=== PATIENT | female | born 1985 | race Caucasian/White ===

== ENCOUNTER 2016-08-04 18:40 | Inpatient (IN) | payer BC ==
[~2016-08-04] VITALS: Ht 167.6 cm; Wt 129.4 kg
--- NOTE | ~2016-08-04 | HP ---
PATIENT'S NAME: SAWYER VAZQUEZ [facility] AGE: 31 Y [address] ROOM: G6214 [place], [place] [address] LOCATION: [facility] ADMIT DATE: 08/04/2016 History & Physical DISCHARGE DATE: FAMILY PHYSICIAN: PHYSICIAN, NO ATTENDING PHYSICIAN: Conner JUNIOR DATE OF SERVICE: CHIEF COMPLAINT: Altered mental status. HISTORY OF PRESENT ILLNESS: This is an extremely complicated patient. Her history is obtained from her as well as charts accompanying her from the outside facility as well as Dr. Taylor in [place] who has been treating the patient for the last several weeks. This is a 31-year-old female, who recently moved to [facility] from [place]. We do have some accompanying records from [place] as well, but this is just an ER record of her visit approximately a month ago. Her past medical history includes borderline personality disorder, questionable bipolar disorder, depression and anxiety, diarrhea predominant IBS, severe migraines for which the patient apparently was receiving Botox injections with success in [place], asthma, sinusitis, insulin-dependent diabetes as well as other not fully known conditions. Upon arriving to [place] from [place], the patient has been treated by Dr. Taylor for complaints of recurrent migraines as well as congestion as well as shortness of breath and generalized fatigue. While being treated by Dr. Taylor in [place], she has also been visiting the ER in [place] as well as the ERs in [place] with complaints of congestion and recurrent migraines. She has been receiving opioids as well as NSAIDs as well as antiemetics and Compazine for her migraines. She has been receiving intermittent doses of steroids for her presumed sinusitis/asthma flares. She had multiple other complaints that were being treated as well. The patient has been visiting both ERs frequently and a concern for opioid-seeking behavior has been raised. It is being conveyed to me by her physician up in [place] that initially when he saw the patient, she was on Seroquel and lithium, but has then discontinued these agents supposedly due to tardive dyskinesia. He reports that when she was reporting tardive dyskinesia/shaking, she would start shaking an extremity that he would look at during his exam. The patient's also reports that the patient has recently been PATIENT'S NAME: SAWYER VAZQUEZ [facility] AGE: 31 Y [address] ROOM: G6214 [place] [address] LOCATION: [facility] ADMIT DATE: 08/04/2016 History & Physical DISCHARGE DATE: FAMILY PHYSICIAN: PHYSICIAN, NO ATTENDING PHYSICIAN: Conner JUNIOR diagnosed with insulin-dependent diabetes and has been on a sliding scale. Her sugars have been extremely erratic and she does occasionally use sliding scale, but at other times, she does not. Of note, her hemoglobin A1c was 5.6 when she presented to [place] today. The patient presented to the [place] ER with complaints of hyperglycemia, Accu- Chek's in 300s as well as dizziness and shaking. She was also found to have a potassium of 2.3 as well as an Accu-Chek of 31. She was admitted for observation. She did receive Phenergan 50 mg IM as well as another cocktail to treat her migraines. Subsequently, the patient became progressively altered and unresponsive. She did receive several rounds of Narcan with minimal effect. Eventually, the patient was completely obtunded and unresponsive and was intubated for airway protection. She was subsequently flown to the [facility]. Her is here and I had an extensive conversation with him about her past medical history, and he also mentioned the patient was intubated with heart failure approximately a year ago back in [place]. He categorically denies any drug or alcohol use, but does endorse approximately a pack a day of tobacco use. 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 Initially upon my visit, the patient was entirely unresponsive to voice or pain stimuli and actually would not overbreathe the vent set at very low respiratory rates. Several minutes after the left the room, the patient woke up and became combative trying to pull out her ET tube. She has now been sedated and is resting comfortably. The patient also received a stress dose of steroids at the outside facility due to frequent steroid use. REVIEW OF SYSTEMS: Cannot be obtained as the patient is intubated and sedated. PAST MEDICAL HISTORY: As described in the HPI. PAST SURGICAL HISTORY: None apparent. SOCIAL HISTORY: As described in the HPI. CURRENT MEDICATIONS: As per the transferring paperwork though accuracy is not confirmed. PATIENT'S NAME: SAWYER VAZQUEZ [facility] AGE: 31 Y [address] ROOM: G6214 [place], [place] [address] LOCATION: [facility] ADMIT DATE: 08/04/2016 History & Physical DISCHARGE DATE: FAMILY PHYSICIAN: PHYSICIAN, NO ATTENDING PHYSICIAN: Conner JUNIOR 1. Levaquin 500 mg daily. Currently being treated for recurrent sinusitis. 2. Gabapentin 300 t.i.d. 3. Wellbutrin 150 daily. 4. Diclofenac 75 mg twice a day. 5. DuoNeb 4 times a day. 6. [place] 300 a.m., 600 p.m. 7. Maxalt 10 mg as needed. 8. Flonase 50. 9. Albuterol 90. 10. Robaxin 750 t.i.d. FAMILY HISTORY: Reviewed and does not appear to be contributory by her . PHYSICAL EXAMINATION: VITAL SIGNS: Temperature 97.9, pulse is 93, respirations are 18, blood pressure 153/79, saturating 100% on 4 L FiO2. GENERAL: Appears morbidly obese, middle-aged female, initially entirely obtunded, but now attempting to take out her tube. NEUROLOGIC: Appears that the patient is moving all extremities. LUNGS: Clear to auscultation. HEART: Shows regular rate and rhythm without appreciable murmurs, gallops, or rubs. GI: Abdomen is soft, nontender, and nondistended. Slightly diminished bowel sounds. : Reveals no costovertebral angle tenderness. VASCULAR: Reveals 2+ pedal pulses. MUSCULOSKELETAL: Shows no muscle or joint abnormalities. SKIN: Warm and dry. PSYCHIATRIC: Cannot be conducted due to the patient being intubated. LABORATORY DATA: Studies from the outside facility are: Hemoglobin A1c is 5.7. Urine is negative. White count is 28.8, hemoglobin 12.3, platelets are 405. Sodium 145, potassium 2.3, glucose 31, chloride 106, carbon dioxide 28, BUN 17, creatinine 0.89. Remainder is unremarkable. Cardiac enzymes are negative. EKG appears unremarkable. ASSESSMENT AND PLAN: This is a critically ill 31-year-old female, who will be admitted with: 1. Altered mental status. It is difficult to fully understand the underlying etiology for her presentation. Per my discussion with her current PMD as well as some records being transferred here, it is certainly possible that the patient may have shown some opioid-seeking behavior. Her altered mental status may also be related to profound PATIENT'S NAME: SAWYER VAZQUEZ [facility] AGE: 31 Y [address] ROOM: G6214 [place], [place] [address] LOCATION: [facility] ADMIT DATE: 08/04/2016 History & Physical DISCHARGE DATE: FAMILY PHYSICIAN: PHYSICIAN, NO ATTENDING PHYSICIAN: Conner JUNIOR hypoglycemia. A CAT scan of her head and sinuses has been done at the outside facility, but at this point, I do not have access to the actual images nor to the report and we will request those to be sent over. We will maintain the patient on the ventilator through the night for airway protection and provide her p.r.n. sedation as needed. We will reevaluate her in the morning once we have better control of her metabolic status, including potassium and glucose. I will also check her lithium level. She did have positive benzos and opiates on the urine tox done at the outside facility, but she has received opioids in one of the 2 ERs which she visits frequently though the origin for the benzos is unclear as of now. 2. Hypoglycemia. The patient did receive stress dose steroids at the outside facility. We will closely monitor her Accu-Chek's and provide her with D50 as needed. It does not appear that the patient is actually diabetic based on her hemoglobin A1c and we will decide on her glucose control regimen once we get a better baseline for her Accu-Chek's. 3. Recurrent steroid therapy. This has been communicated to me and appears to be an ongoing pattern from [place]. It seems like at this point steroids are not warranted and we will hold off. Her biochemical profile is inconsistent with adrenal insufficiency as her potassium is low and sodium is normal and the opposite would be expected. 4. Leukocytosis. I have reviewed the patient's lab results from several visits here as well as the available paperwork from [place], and she does develop significant leukocytosis likely related to the steroids. We will draw blood cultures as well as urine cultures and monitor her CBCs. 5. Hypokalemia, unclear what the underlying etiology is. We will recheck all her labs and initiate a renal workup. We will supplement her potassium. 6. Airway protection. The patient will be intubated as above. 7. Questionable sinusitis. We will have to review her images. 8. Additional management will depend on clinical course. This line of management was discussed with the patient's and I did explain to him that we are dealing with an extremely difficult picture and we will do our best to get the patient better. This patient is critically ill. Critical care time outside of procedures is 75 minutes. MD SUNDEEP MENA/matthew PATIENT'S NAME: SAWYER VAZQUEZ [facility] AGE: 31 Y [address] ROOM: [place] [address] LOCATION: [facility] ADMIT DATE: 08/04/2016 History & Physical DISCHARGE DATE: FAMILY PHYSICIAN: PHYSICIAN, ARPIT ATTENDING PHYSICIAN: Conner JUNIOR /[id number] D: [id number] T: HISTORY & PHYSICAL
--- NOTE | ~2016-08-04 | DS ---
PATIENT'S NAME: SAWYER VAZQUEZ [facility] AGE: 31 Y [address] ROOM: [place] [address] LOCATION: [facility] ADMIT DATE: 08/04/2016 Discharge Summary DISCHARGE DATE: 08/06/2016 FAMILY PHYSICIAN: PHYSICIAN, NO ATTENDING PHYSICIAN: Conner JUNIOR PRIMARY DIAGNOSES: 1. Acute encephalopathy. 2. Severe hypoglycemia. 3. Acute hypoxic respiratory failure. 4. Asthma, moderate persistent. 5. Bipolar disorder. 6. Polypharmacy. 7. Morbid obesity. 8. Tobaccoism. 9. Migraine headaches. 10. Polycystic ovarian syndrome. 11. Generalized pain. OPERATIONS OR PROCEDURES: None. HISTORY OF PRESENTING ILLNESS/REASON FOR ADMISSION: Please read H and P dictated 08/04/2016. HOSPITAL COURSE: The patient was admitted to hospital as noted above after transfer from outside facility with acute encephalopathy. Her presentation was disorganized. She had initially presented to the outside facility with complaints of hyperglycemia. She does not actually recall the events preceding this and does not believe that she utilized insulin, but admits that it could be possible. The records that accompanied her do not delineate whether or not she received insulin at the time of her presentation there. At any rate, she developed progressive obtundation and anatoly hypoglycemia after her arrival. She did require ventilatory support, and was transferred here for definitive evaluation and management. On her arrival, she was persistently hypoglycemic. She did receive some IV dextrose supplementation and her blood sugars normalized. She quickly became arousable and was able to be extubated. Subsequently, she was transferred to the floor. Her medication regimen was streamlined. As indicated above, there is a significant amount of disorganization and fragmented care in the preceding months. The patient had been placed on a number of medications in the preceding year that she was no longer taking, but continues to have in her possession. Unfortunately, she was not able to provide consistent report as to which medication she did PATIENT'S NAME: SAWYER VAZQUEZ [facility] AGE: 31 Y [address] ROOM: [place] [address] LOCATION: GPCU ADMIT DATE: 08/04/2016 Discharge Summary DISCHARGE DATE: 08/06/2016 FAMILY PHYSICIAN: PHYSICIAN, NO ATTENDING PHYSICIAN: SANDI,Dagmawe continue to use. On hospital day #3, she was complaining of generalized pain and was treated with non-opiate medications. She was ambulated and was tolerating regular diet, and at that point, it was felt she would be stable enough for discharge to home with plans for close clinical followup with primary care provider. She was encouraged to establish primary care provider in her hometown of [place], which she had been encouraged to do at her last two of the emergency room visits. DISCHARGE INSTRUCTIONS: Diet: Regular as tolerated. Activity: As tolerated. MEDICATIONS: 1. Albuterol HFA 2 puffs p.o. q.4-6 hours p.r.n. wheezing or dyspnea. 2. Tessalon Perles 100 mg p.o. t.i.d. 3. Diclofenac sodium 75 mg p.o. b.i.d. 4. Clonazepam 1 mg p.o. b.i.d. 5. Bentyl 10 mg p.o. q.i.d. 6. Migranal spray each nostril daily p.r.n. 7. Nexium 40 mg p.o. daily. 8. Advair 500/50 one puff p.o. b.i.d. 9. Gabapentin 600 mg p.o. t.i.d. 10. Lisinopril 10 mg p.o. q.p.m. 11. Robaxin 750 mg p.o. t.i.d. p.r.n. 12. Singulair 10 mg p.o. at bedtime. 13. Jose De Jesus 21 one tab daily. 14. Zofran 4 mg p.o. b.i.d. p.r.n. nausea. 15. Verapamil 80 mg p.o. t.i.d. FOLLOWUP: She will follow up with her primary care provider in [place] (primary care provider at the clinic there) in 5-7 days. She was instructed not to use insulin, but to continue to record her blood sugar log twice daily. CONDITION ON DISCHARGE: Fair. Total time spent on discharge process 45 minutes. MD REYNA GALAN/matthew PATIENT'S NAME: SAWYER VAZQUEZ [facility] AGE: 31 Y [address] ROOM: [address] [address] [facility] AD[facility] DATE: 08/04/2016 Discharge Summary DISCHARGE DATE: 08/06/2016 FAMILY PHYSICIAN: ARPIT ADAMS ATTENDING PHYSICIAN: Conner JUNIOR /[id number] d: 08/07/16 0139 t: 08/16/16 0000, DISCHARGE SUMMARY
[2016-08-05 00:14] LABS: HEMATOCRIT 39.6 % (33.0-46.0); HEMOGLOBIN 12.4 g/dL (11.0-15.0); MCH 29.2 pg (27.0-34.0); MCHC 31.3 gm/dL (32.0-36.5); MCV 93.2 fl (83.0-98.0); MPV 9.6 fl (9.4-12.4); NEUTROPHIL % 89.4 %; NRBC % 0 /100WBC (0-0.00); PLATELET COUNT 302 K/uL (150-450); RBC 4.25 M/uL (3.50-5.50); RDW-CV 16.1 % (11.9-14.6); WBC 24.6 K/uL (4.0-11.0)
[2016-08-05 00:15] LABS: BASOPHIL % 0.2 %; IMMATURE GRANULOCYTE # 0.3 K/uL (0.0-0.3); IMMATURE GRANULOCYTE % 1.2 %; LYMPHOCYTE # 1.5 K/uL (0.8-4.0); LYMPHOCYTE % 6.2 %; MONOCYTE # 0.8 K/uL (0.0-1.0)
[2016-08-05 00:30] LABS: ALK PHOS 51 IU/L (33-138); ALT 27 IU/L (12-78); ANION GAP 11.3 (10.0-19.0); AST 17 IU/L (10-40); BLOOD UREA NITROGEN 12 mg/dL (6-24); CHLORIDE 109 mMol/L (96-110); CO2 27 mMol/L (22-32); CPK 71 IU/L (21-215); CREATININE 0.6 mg/dL (0.5-1.1); ESTIMATED GFR (MDRD EQUATION) > 60; PHOSPHORUS 4.7 mg/dL (2.5-4.9); POTASSIUM 4.3 mMol/L (3.7-5.1); SODIUM 143 mMol/L (135-145); TOTAL BILIRUBIN 0.2 mg/dL (0.0-1.5); TOTAL PROTEIN 5.9 g/dL (6.0-8.4)
[2016-08-05 00:32] LABS: CALCIUM 7.4 mg/dL (8.5-10.5)
[2016-08-05 03:23] LABS: BILIRUBIN URINE NEGATIVE (NEGATIVE); BLOOD URINE 25 /UL (NEGATIVE); COLOR URINE YELLOW (YELLOW); GLUCOSE URINE NEGATIVE (NEGATIVE); KETONE URINE NEGATIVE (NEGATIVE); LEUKOCYTES URINE NEGATIVE /UL (NEGATIVE); NITRITE URINE NEGATIVE (NEGATIVE); PH URINE 6.5 (4.0-8.0); PROTEIN URINE NEGATIVE (NEGATIVE); SPEC GRAVITY URINE 1.015 (1.003-1.035); TURBIDITY URINE CLEAR (CLEAR); UROBILINOGEN URINE NORMAL (NORMAL)
[2016-08-05] MEDS ORDERED: DUONEB INH (03:28)
[2016-08-05] MEDS ORDERED: WELLBUTRIN XL150 MG PO (03:29)
[2016-08-05] MEDS ORDERED: NEURONTIN300 MG PO (03:29)
[2016-08-05] MEDS ORDERED: NEURONTIN600 MG PO (03:30)
[2016-08-05 03:32] LABS: BACTERIA URINE NEGATIVE (NEGATIVE); EPITHELIAL URINE 0-2 #/HPF (NEGATIVE); WBC URINE NEGATIVE #/HPF (NEGATIVE)
[2016-08-05] MEDS ORDERED: COMBIVENT RESPIM4 GM INH (03:32)
[2016-08-05] MEDS ORDERED: MAXALT10 MG PO ×2 (03:34→03:35)
[2016-08-05] MEDS ORDERED: ADVAIR 500-501 EACH INH (03:36)
[2016-08-05] MEDS ORDERED: PROAIR HFA8.5 GM INH (03:39)
[2016-08-05] MEDS ORDERED: PHENERGAN25 M1 PO (03:40)
[2016-08-05] MEDS ORDERED: ROBAXIN500 MG PO (03:40)
[2016-08-05 03:43] LABS: BARBITURATE NEGATIVE (NEGATIVE); OPIATES POSITIVE (NEGATIVE)
[2016-08-05 03:45] LABS: AMPHETAMINE NEGATIVE (NEGATIVE); COCAINE NEGATIVE (NEGATIVE)
[2016-08-05 10:44] LABS: BASOPHIL % 0.2 %; EOSINOPHIL # 0.1 K/uL (0.0-0.5); EOSINOPHIL % 0.6 %; HEMATOCRIT 36.4 % (33.0-46.0); HEMOGLOBIN 11.3 g/dL (11.0-15.0); IMMATURE GRANULOCYTE # 0.2 K/uL (0.0-0.3); IMMATURE GRANULOCYTE % 0.8 %; LYMPHOCYTE # 3.5 K/uL (0.8-4.0); LYMPHOCYTE % 16.3 %; MCH 28.3 pg (27.0-34.0); MCV 91.2 fl (83.0-98.0); MONOCYTE # 0.9 K/uL (0.0-1.0); MONOCYTE % 4.3 %; MPV 10.7 fl (9.4-12.4); NEUTROPHIL # (ANC) 16.5 K/uL (1.8-7.8); NEUTROPHIL % 77.8 %; NRBC % 0.1 /100WBC (0-0.00); RBC 3.99 M/uL (3.50-5.50); RDW-CV 16.5 % (11.9-14.6)
[2016-08-05 11:35] LABS: ALBUMIN 2.7 gm/dL (3.5-5.0); ANION GAP 10.5 (10.0-19.0); BLOOD UREA NITROGEN 9 mg/dL (6-24); CALCIUM 8.1 mg/dL (8.5-10.5); CHLORIDE 109 mMol/L (96-110); CO2 28 mMol/L (22-32); CREATININE 0.6 mg/dL (0.5-1.1); ESTIMATED GFR (MDRD EQUATION) > 60; PHOSPHORUS 3.1 mg/dL (2.5-4.9); SODIUM 143 mMol/L (135-145)
[2016-08-05 11:45] LABS: WBC 21.3 K/uL (4.0-11.0)
[2016-08-05 11:48] LABS: PLATELET COUNT 177 K/uL (150-450)
[2016-08-05 11:49] LABS: POTASSIUM 4.5 mMol/L (3.7-5.1)
[2016-08-05] MEDS ORDERED: ZOFRAN4 MG PO (14:37)
[2016-08-05] MEDS ORDERED: CALAN SR GENER120 MG PO (14:38)
[2016-08-05] MEDS ORDERED: ZONISAMIDE100 MG PO (14:39)
[2016-08-05] MEDS ORDERED: PRINIVIL OR ZES10 MG PO (14:39)
[2016-08-05] MEDS ORDERED: PROMETH-CODEIN 65 ML PO (14:43)
[2016-08-05] MEDS ORDERED: SINGULAIR10 MG PO (14:43)
[2016-08-05] MEDS ORDERED: TESSALON PERLE100 MG PO (14:44)
[2016-08-05] MEDS ORDERED: BENTYL10 MG PO (14:44)
[2016-08-05] MEDS ORDERED: DICLOFENAC SODI75 MG PO (14:45)
[2016-08-05] MEDS ORDERED: LIDOCAINE1 EACH TRANS (14:46)
[2016-08-05] MEDS ORDERED: LARIN 21 1-201 EACH PO (14:51)
[2016-08-05] MEDS ORDERED: NEXIUM40 MG PO (14:51)
[2016-08-05] MEDS ORDERED: ZANAFLEX4 MG PO (14:51)
[2016-08-05] MEDS ORDERED: MIGRANAL1 ML NOSE (14:52)
[2016-08-05] MEDS ORDERED: KLONOPIN1 MG PO (14:53)
[2016-08-06] MEDS ORDERED: CHANTIX0.5 MG PO ×2 (13:27→13:28)
[2016-08-06] MEDS ORDERED: CHANTIX1 MG PO (13:29)
== END 2016-08-06 14:12 | disposition disaster alternative care site (69) | DRG 637 ==
LOC: GPCU 20:53 → GICU 20:53 → GPCU 08-05 14:18
PROVIDERS: Family Medicine; Internal Medicine; ADMIT Internal Medicine
DX: E11.649 Type 2 diabetes mellitus with hypoglycemia without coma (principal); G93.41 Metabolic encephalopathy; J96.01 Acute respiratory failure with hypoxia; Z68.42 Body mass index [BMI] 45.0-49.9, adult; R65.10 Systemic inflammatory response syndrome (SIRS) of non-infectious origin without acute organ dysfunction; E66.01 Morbid (severe) obesity due to excess calories; D72.829 Elevated white blood cell count, unspecified; E87.6 Hypokalemia; F31.9 Bipolar disorder, unspecified; J32.9 Chronic sinusitis, unspecified; J45.40 Moderate persistent asthma, uncomplicated
CPT/HCPCS: C1751; C9113; J1650; J2250; J7030; J7042; J7050; J7060

== ENCOUNTER → 2016-08-04 | Outpatient (CLI) | payer BC ==
[~2016-08-04] MED LIST: ACCU-CHEK1 EAC1; ADVAIR 500-501 EACH INH; BENTYL10 MG PO; BOTOX; CALAN SR GENER120 MG PO; CHANTIX0.5 MG PO; CHANTIX1 MG PO; COMBIVENT RESPIM4 GM INH; DELTASONE10 MG PO; DESYREL50 MG PO; DICLOFENAC SODI75 MG PO; DUONEB INH; FIORICET 50-301 EACH PO; HUMALOG100 UNIT/1 SUB-Q; HYDROCODON-ACE1 EAC6 PO; IMITREX6 MG/0.5 M SUB-Q; K-TAB 10MEQ10 MEQ PO; KLONOPIN1 MG PO; LARIN 21 1-201 EACH PO; LASIX20 MG PO; LEVAQUIN 750 M750 MG PO; LIDOCAINE1 EACH TRANS; LITHIUM CARBON300 MG PO; LYRICA 150MG C150 MG PO; MAXALT10 MG PO; MIGRANAL1 ML NOSE; NEURONTIN300 MG PO; NEURONTIN600 MG PO; NEXIUM40 MG PO; PHENERGAN25 M1 PO; PRINIVIL OR ZES10 MG PO; PROAIR HFA8.5 GM INH; PROMETH-CODEIN 65 ML PO; ROBAXIN500 MG PO; SEROQUEL200 MG PO; SINGULAIR10 MG PO; TESSALON PERLE100 MG PO; ULTRAM50 MG PO; WELLBUTRIN SR150 MG PO; WELLBUTRIN XL150 MG PO; XARELTO15 MG PO; XARELTO20 MG PO; ZANAFLEX4 MG PO; ZOFRAN4 MG PO; ZONISAMIDE100 MG PO
== END | disposition disaster alternative care site (69) ==
LOC: GAMB 20:04
DX: T65.91XA Toxic effect of unspecified substance, accidental (unintentional), initial encounter (principal); R40.20 Unspecified coma
CPT/HCPCS: A0425; A0428

== ENCOUNTER 2016-08-11 01:38 | Inpatient (IN) | payer BC ==
[~2016-08-11] VITALS: Ht 167.6 cm; Wt 122.0 kg
--- NOTE | ~2016-08-11 | ENPV ---
Vascular Lower Extremities DVT Study Procedure Demographics Patient Name SAWYER VAZQUEZ Date of Study 08/11/2016 Patient Number [id number] Gender Female Date of 1985 Age 31 Visit Number [id number] Height 66 Weight 272.01 Number Referring Leo Vera V Interpreting Mir Uriostegui MD Physician Physician Physician Ordering Leo Vera V Civil Engineering Technician Physician Roofing Machine Tender Nancy Chen [facility], T Conclusions Summary No evidence of deep vein thrombosis or superficial thrombophlebitis in the lower extremities bilaterally . Procedure Type of Study: Veins:Lower Extremities DVT Study, Venous Duplex Lower Extremity Bilateral. Indications for Study:Pulmonary embolism. Appropriate Use Criteria:9 Patient Status:Routine. Study Location:Inpatient Portable. Technical Quality:Adequate visualization. Velocities are measured in cm/s ; Diameters are measured in cm Right Lower Extremities DVT Study Measurements Right 2D and Doppler Measurements + + + + +------+------+ + !Location !Visualized!Compressibility!Thrombosis!Signal!Reflux!Reflux ! ! ! ! ! ! ! !(sec) ! + + + + +------+------+ + !GSV Thigh !Yes !Yes !None !Phasic! ! ! + + + + +------+------+ + !Common !Yes !Yes !None !Phasic! ! ! !Femoral ! ! ! ! ! ! ! + + + + +------+------+ + !Prox !Yes !Yes !None !Phasic! ! ! !Femoral ! ! ! ! ! ! ! + + + + +------+------+ + !Mid Femoral!Yes !Yes !None !Phasic! ! ! + + + + +------+------+ + !Dist !Yes !Yes !None !Phasic! ! ! !Femoral ! ! ! ! ! ! ! + + + + +------+------+ + !Popliteal !Yes !Yes !None !Phasic! ! ! + + + + +------+------+ + !Gastroc !Yes !Yes !None ! ! ! ! + + + + +------+------+ + !PTV !Yes !Yes !None ! ! ! ! + + + + +------+------+ + !Peroneal !Yes !Yes !None ! ! ! ! + + + + +------+------+ + Left Lower Extremities DVT Study Measurements Left 2D and Doppler Measurements + + + + +------+------+ + !Location !Visualized!Compressibility!Thrombosis!Signal!Reflux!Reflux ! ! ! ! ! ! ! !(sec) ! + + + + +------+------+ + !GSV Thigh !Yes !Yes !None !Phasic! ! ! + + + + +------+------+ + !Common !Yes !Yes !None !Phasic! ! ! !Femoral ! ! ! ! ! ! ! + + + + +------+------+ + !Prox !Yes !Yes !None !Phasic! ! ! !Femoral ! ! ! ! ! ! ! + + + + +------+------+ + !Mid Femoral!Yes !Yes !None !Phasic! ! ! + + + + +------+------+ + !Dist !Yes !Yes !None !Phasic! ! ! !Femoral ! ! ! ! ! ! ! + + + + +------+------+ + !Popliteal !Yes !Yes !None !Phasic! ! ! + + + + +------+------+ + !Gastroc !Yes !Yes !None ! ! ! ! + + + + +------+------+ + !PTV !Yes !Yes !None ! ! ! ! + + + + +------+------+ + !Peroneal !Yes !Yes !None ! ! ! ! + + + + +------+------+ + Signature dtt: PAPI BRITO dtestrellita: 08/11/16 0945 Physician Self Radha
--- NOTE | ~2016-08-11 | DS ---
PATIENT'S NAME: SAWYER VAZQUEZ [facility] AGE: 31 Y [address] ROOM: [id number], [place] [address] LOCATION: [facility] ADMIT DATE: 08/11/2016 Discharge Summary DISCHARGE DATE: 08/14/2016 FAMILY PHYSICIAN: Maynor Whitfield ATTENDING PHYSICIAN: Chuy Bailey V PRINCIPAL DIAGNOSES: 1. Intractable migraine headache. 2. Abnormal chest CT scan suggesting possible acute pulmonary embolism. 3. Pain seeking behavior. 4. Essential hypertension. BRIEF HOSPITAL COURSE: Please refer to the admission H and P for a detailed history of initial presentation. This is a 31-year-old female who has a known history of migraine headaches, presented for evaluation of complicated migraine and concern for pseudotumor cerebri. The patient during hospitalization had an LP done, which the findings were not consistent with what would be suggestive of pseudotumor cerebri to explain her headaches. In any case, the patient was given multiple pain medications and was also noted to be requesting narcotic pain medication, which is usual for her with frequent emergency room and hospitalizations in the past several months with this. In any case, the patient was also noted to be on treatment for an acute PE, but upon further review of the CT scan and the poor quality of a chest CT that diagnosed on a CT scan and in consultation with Pulmonology and Dr. Claros, it was deemed that CT findings perhaps not suggestive of PE and at this point, we will go ahead and stop all anticoagulation. The patient during hospitalization was also complaining of left upper extremity pain and Doppler ultrasound of the extremity did not show any deep vein thrombosis, but did show some superficial thrombophlebitis of the axillary to mid forearm basilic vein and to the proximal to distal forearm cephalic vein. The patient at this point will be discharged home with medications to help control her chronic migraine headaches, and she will be discharged on verapamil 120 mg b.i.d. and Fioricet as needed as well as sumatriptan injection for breakthrough migraine headaches that are not controlled with oral medications. PHYSICAL EXAMINATION: VITAL SIGNS: Stable. GENERAL: The patient is awake, alert, and oriented x3, in no distress. CHEST: Clear to auscultation bilaterally. HEART: S1, S2. Regular rate and rhythm. ABDOMEN: Soft, nontender, and nondistended. EXTREMITIES: Without edema. NEURO: Grossly nonfocal. DISPOSITION: Home. The patient is follow up with PCP in 1 week. PATIENT'S NAME: SAWYER VAZQUEZ [facility] AGE: 31 Y [address] [id number] [address] LOCATION: GICU ADMIT DATE: 08/11/2016 Discharge Summary DISCHARGE DATE: 08/14/2016 FAMILY PHYSICIAN: , New ATTENDING PHYSICIAN: Chuy Bailey V Less than 30 minutes were spent in discharge planning. MD LORETTA HO/matthew /[id number] d: 08/14/166 t: 08/15/16 1442, DISCHARGE SUMMARY
--- NOTE | ~2016-08-11 | HP ---
PATIENT'S NAME: SAWYER VAZQUEZ [facility] AGE: 31 Y [address] ROOM: [address] [address] LOCATION: [facility] ADMIT DATE: 08/11/2016 History & Physical DISCHARGE DATE: FAMILY PHYSICIAN: PHYSICIAN, UNKNOWN ATTENDING PHYSICIAN: TORITO CHANDLER V DATE OF SERVICE: CHIEF COMPLAINT: Headaches. HISTORY OF PRESENT ILLNESS: Ms. Vazquez has had an extremely complicated course in the last 4 weeks. This patient is familiar to me from a recent admission to [facility] where she was intubated for altered mental status and spent approximately 2 days on the vent here. This patient has recently moved to [place] from [place]. She caries and volunteers a host of multiple medical problems as follows: 1. Polycystic ovarian disorder. 2. Severe migraines which the patient was receiving Botox injections in [place], but has not been able to establish insurance/provided to do those services for her here. 3. Generalized anxiety as well as bipolar disorder. 4. Asthma. In fact, the patient has been treated with steroids on numerous occasions including several visits to the ER in [place] for which we do have documentation. 5. Acute congestive heart failure which the patient seen a specialist in [facility] before, though the circumstances of that are unavailable. 6. Asthma for which the patient has seen a lead sales consultant. 7. The patient volunteers history of diabetes though her last hemoglobin A1c here was normal. 8. Pulmonary embolism. This was diagnosed 4 days ago where she presented with hypoxia to the hospital in [place]. 9. Morbid obesity. 10. Tobacco dependence. 11. Chronic pain and in fact, the patient had been seen maybe 12 times in various emergency rooms across [facility] including [place], [place], [place], and [place] in the last 3 to 4 weeks. 12. Borderline personality disorder. The patient was seen and followed by a psychiatrist in [place]. 13. The patient volunteers multiple musculoskeletal problems including chronic lower back pain, spondylosis, sacroiliac joint dysfunction. 14. This patient volunteers a past medical history of irritable bowel disorder. 15. Recurrent sinusitis which the patient has been treated with steroids and PATIENT'S NAME: SAWYER VAZQUEZ [facility] AGE: 31 Y [address] ROOM: [id number] [place], [place] [address] LOCATION: [facility] ADMIT DATE: 08/11/2016 History & Physical DISCHARGE DATE: FAMILY PHYSICIAN: PHYSICIAN, UNKNOWN ATTENDING PHYSICIAN: TORITO CHANDLER V antibiotics in a number of recent occasions. The patient has been seeking care as mentioned above, has been seeking care in multiple emergency rooms complaining of severe migraines, manifesting as throbbing right-sided headache with photophobia, phonophobia, nausea and vomiting. She also has been complaining of severe chest pain, which is generalized and does not localize to the reported side of her small pulmonary embolism. She has been complaining of abdominal pain and generalized discomfort. She has received opioids, NSAIDs, antibiotics and steroids in the course of these multiple visits. The patient was seen in the ER in [place] yesterday and was found to be hypoxic in mid 80s. She was placed on oxygen and I was contacted about her transfer and accepted the patient, however, she left the hospital AMA. Today the patient came back to the hospital complaining of again headaches, generalized chest pain, cough and profound hypoxia saturating in the 70s. It was conveyed to me that the patient dropped down into the low 80s on 1 L nasal cannula at the outside facility. The patient was saturating 89% to 92% on 1 L nasal cannula upon my examination. She did have some dry crackles at bases initially, however, upon taking deep inspiration, the patient's crackles resolved, and her oxygen saturation normalized to low 90s to high 90s off any supplemental oxygen. The transferring provider was concerned about possibility of pseudotumor cerebri in this patient as she does have polycystic ovarian disease as well as morbid obesity, however, on my funduscopic examination with a panoptic ophthalmoscope, I do not appreciate any papilledema. REVIEW OF SYSTEMS: Positive for multiple complaints noted above including cough, chest pain, shortness of breath, headaches, blurry vision, nausea, back pain, weakness and palpitations. Remainder of systems have been reviewed and are negative aside from pertinent positives mentioned above. PAST MEDICAL HISTORY: As listed above. SOCIAL HISTORY: Significant for ongoing tobacco abuse. FAMILY HISTORY: Reviewed and is noncontributory. CURRENT MEDICATIONS: PATIENT'S NAME: GEORGE, SAWYER D [facility] AGE: 31 Y [address] ROOM: [address] [place] [id number] LOCATION: [facility] ADMIT DATE: 08/11/2016 History & Physical DISCHARGE DATE: FAMILY PHYSICIAN: PHYSICIAN, UNKNOWN ATTENDING PHYSICIAN: TORITO CHANDLER V 1. Advair 500/50. 2. Albuterol. 3. Ipratropium. 4. Dihydroergotamine nasal spray. 5. Wellbutrin. 6. Trazodone. 7. Gabapentin. 8. Phenergan. 9. Voltaren. 10. Robaxin. 11. Nexium. 12. Bentyl. 13. Tizanidine. 14. Verapamil. 15. Lisinopril. 16. Clonazepam. PHYSICAL EXAMINATION: VITAL SIGNS: Blood pressure 128/63, heart rate is in the 70s, saturations mid to high 90s on room air, afebrile, respirations 16. GENERAL: Appears as a morbidly obese, young female, in no visible distress though she does start to cry when requesting pain medications. NEUROLOGICAL: Nonfocal. EYES: Does show a crisp optic disks bilaterally and no other abnormalities. LYMPHATIC: Shows no cervical lymphadenopathy. ENDOCRINE: No thyromegaly. HEART: Reveals regular rate and rhythm. GI: Abdomen is soft and nontender. : No costovertebral angle tenderness. VASCULAR: 2+ pedal pulses. MUSCULOSKELETAL: Unremarkable. PSYCHIATRIC: Reveals quite a labile mood and affect, but appropriate cognition. SKIN: Warm and dry. DIAGNOSTIC DATA: Review of the studies from the outside facility is significant for a white count which is 15 and it is normally elevated basically unremarkable by chemical workup. CT of her chest which reads probable small right lower lobe pulmonary embolus, thoracic aorta normal, small bilateral pleural effusion, mild bilateral lung interstitial thickening, moderate diffuse bilateral ground-glass opacities and mild lower lobe consolidation most likely pulmonary edema. PATIENT'S NAME: SAWYER VAZQUEZ [facility] AGE: 31 Y [address] ROOM: [address] [place] [id number] LOCATION: [facility] ADMIT DATE: 08/11/2016 History & Physical DISCHARGE DATE: FAMILY PHYSICIAN: PHYSICIAN, UNKNOWN ATTENDING PHYSICIAN: TORITO CHANDLER V CT of the abdomen shows liver enlargement, spleen enlargement and ovarian cyst which undermines that she has been evaluated at outside facility with an ultrasound. Mild ileus bowel gas pattern. EKG appears unremarkable. ASSESSMENT AND PLAN: This is an extremely complicated 31-year-old female, who was transferred and we were accepted for further evaluation of her multiple symptoms and some objective findings. I formulated the following approach and explained it to the patient: 1. Migraines. We will request a formal Neurology consultation and request records from her treating neurologist at the outside facility. It is my understanding that the patient is scheduled for sphenopalatine ganglion block which is being done in [facility] in about 1 week. We will make sure she keeps that appointment. I think that the possibility for pseudotumor cerebri is quite low but we will ask Neurology consultation to opine. At this point, the patient cannot have a lumbar puncture due to having being on Xarelto. 2. Documented hypoxia at the outside facility and questionable asthma with findings of pulmonary edema on her CT chest. We will request records from the patient's lead sales consultant in [place]. We will request for our Pulmonology beauty consultant to evaluate the patient. In regard to the PE noted on the CT chest, I would like to get a confirmatory V/Q scan as committing this patient who is already on polypharmacy to a blood thinner is risky. For the time being, we will resume her Xarelto once we have recommendations from pulmonology consultation as well as results of the V/Q scan. 3. Documented history of congestive heart failure with findings of pulmonary congestion on the CT of her chest from 4 days ago. We will request records from her review specialist as she told me that she has had a Holter and some sort of a cardiac evaluation back in [facility]. We will also check her BNP. We will get a Cardiology consultation here once we have more studies back. 4. Concerned about opioid seeking behavior. I explained to the patient that I do not intend to provide her with any more opioids neither for her headaches nor for her chest pain as her chest pain is not consistent with what one would expect from a small pulmonary embolism. 5. Documented history of diabetes. The patient had a hemoglobin A1c which was normal on the last admission and we will stay away from insulin and steroids in her case. We will check her cortisol level with a.m. labs as multiple courses of steroids may potentially have caused some adrenal suppression. 6. Borderline/bipolar. We will continue her current psychiatric regimen and consider a psychiatric consultation once medical workup is on the way. PATIENT'S NAME: SAWYER VAZQUEZ [facility] AGE: 31 Y [address] ROOM: [address] [address] LOCATION: [facility] ADMIT DATE: 08/11/2016 History & Physical DISCHARGE DATE: FAMILY PHYSICIAN: PHYSICIAN, UNKNOWN ATTENDING PHYSICIAN: TORITO CHANDLER V 7. Hepatosplenomegaly. The significance of this is as of yet unclear. We will monitor the patient's LFTs and request records from her PMD in [place] to better assess this finding. 8. Polycystic ovarian disease. We will consider getting a CHAIRMAN consultation but I am aware that the patient has been seen for this by a specialist wound care at the outside facility in [facility] and we will request records from there. 9. Deep vein thrombosis prophylaxis will be instituted if we end up discontinuing her Xarelto. Additional management will depend on clinical course. This course was discussed with the patient. I explained to her that we will try and achieve some symptomatic support without any opioids. Time dedicated to this patient encounter is 35 minutes. MD SUNDEEP MENA/matthew /[id number] D: [id number] T: HISTORY & PHYSICAL
--- NOTE | ~2016-08-11 | CON ---
PATIENT'S NAME: SAWYER VAZQUEZ [facility] AGE: 31 Y [address] ROOM: [place] [address] LOCATION: [facility] ADMIT DATE: 08/11/2016 Consultation DISCHARGE DATE: FAMILY PHYSICIAN: , New ATTENDING PHYSICIAN: TORITO CHANDLER V REFERRING PHYSICIAN: Ward Claros MD REFERRING: Hospitalist service. REASON FOR REFERRAL: Hypoxemia. HISTORY OF PRESENT ILLNESS: The patient is a 31-year-old with a complicated history. Please refer to the admission history and physical exam for details. I was asked to see her regarding the diagnosis of pulmonary embolism. For transfer here, she was seen in [place] and a PE protocol CT scan was performed. There were reports of hypoxemia, although I suspect some of the oximetry readings sent to us were spurious and due to poor perfusion. Nevertheless, she had a PE protocol CT scan done which was read as positive for a subsegmental PE. The scan, however, was of extremely poor quality with virtually no contrast in the pulmonary arteries. She was transferred here and actually admitted for migraine headaches. She was initially on oxygen but is currently on room air. A ventilation perfusion scan demonstrated a normal perfusion and areas of poor ventilation consistent with airways disease. Venous Doppler studies of the lower extremities were negative for clots. PAST MEDICAL HISTORY: Please refer to the admission history and physical exam. FAMILY HISTORY: Will not be repeated here. SOCIAL HISTORY: Will not be repeated here. REVIEW OF SYSTEMS: Will not be repeated here. PHYSICAL EXAMINATION: GENERAL: She is awake, but lying in bed with dark glasses on. She says she is short of breath but looks comfortable. She is not hypoxemic. LUNGS: Demonstrate expiratory wheezes and rhonchi when she coughs. HEART: Distant and regular. ABDOMEN: Massively obese. PATIENT'S NAME: SAWYER VAZQUEZ [facility] AGE: 31 Y [address] ROOM: [place] [id number] LOCATION: [facility] ADMIT DATE: 08/11/2016 Consultation DISCHARGE DATE: FAMILY PHYSICIAN: , New ATTENDING PHYSICIAN: TORITO CHANDLER V EXTREMITIES: Moderate edema. ASSESSMENT: I find no convincing evidence of a pulmonary embolism. The CT scan is totally inadequate for interpretation due to poor contrast enhancement of the pulmonary arteries. Her hypoxemia and shortness of breath are much more likely due to: 1. Airways disease (asthma and chronic obstructive pulmonary disease). 2. Massive obesity and deconditioning. 3. Sedation from narcotics and other sedating drugs. PLAN: We would discontinue full anticoagulation and use prophylactic doses of Lovenox or heparin. We will treat her airways disease. We will get her out of bed. Get her exercising and losing weight. MD SABHIA ALEXIS/modl /[id number] d: 08/12/16 1104 t: 08/22/16 1429, CONSULTATION REPORT
--- NOTE | ~2016-08-11 | ECHO ---
Transthoracic Echocardiography Report (TTE) Demographics Patient Name SAWYER VAZQUEZ Date of Study 08/11/2016 Patient Number [id number] Visit Number [id number] Date of 1985 Room Number [id number] Gender Female Number Age 31 year(s) Referring Leo Vera V Perioperative Tech Nancy Chen Physician RDCS, RVT Physician Interpreting Awilda Bautista Air Press Operator Physician Supervising Ordering Leo Peguero MD/MLP Physician MD Nurse Stress Washer And Capper Machine Operator Conclusions Contractility Score Summary Normal Left Ventricular contractility was noted. Summary The estimated left ventricular ejection fraction is 60-65% with normal WM,wall thickness and internal dimension. There is evidence of a patent foramen ovale by color Doppler. Trivial MR. Trivial tricuspid regurgitation by color Doppler. There is moderate pulmonary hypertension. The pulmonary pressure (RVSP) is 44.38 mmHg. Procedure Type of Study TTE procedure:2D Echocardiogram. Procedure Date Date: 08/11/2016 Start: 09:22 AM Study Location: Inpatient Portable Technical Quality: Adequate visualization Indications:Heart Failure. Appropriate Use Criteria: 9 Patient Status: Routine HR: 66 bpm BP: 128/69 mmHg M-Mode/2D Measurements LV Diastolic Dimension: 4.84 cm LV Systolic Dimension: 3.61 cm LV Septum Diastolic: 0.96 cm LV PW Diastolic: 1.05 cm Cardiac Output: 4.4 l/min LA Dimension: 3.9 cm LVOT: 1.9 cm LVOT VTI: 23.5 cm RV Base: 3.11 cm LV Stroke volume: 66.6 ml RV Length: 7.38 cm TAPSE: 2.37 cm TDI-S': 10.1 cm/s Doppler Measurements AV Peak Velocity: 1.45 m/s MV Peak E-Wave: 1.05 m/s AV Peak Gradient: 8.41 mmHg MV Peak A-Wave: 0.88 m/s AV Mean Gradient: 5 mmHg MV E/A Ratio: 1.19 LVOT Peak Velocity: 0.88 m/s MV P1/2t: 59 msec TR Gradient:29.38 mmHg PV Peak Velocity: 0.89 m/s Estimated RAP:15 mmHg PV Peak Gradient: 3.16 mmHg Estimated RVSP: 44 mmHg Estimated PASP: 44.38 mmHg E' Septal Velocity: 0.1 m/s A' Septal Velocity: 0.05 m/s E' Lateral Velocity: 0.13 m/s A' Lateral Velocity: 0.08 m/s Findings Left Ventricle Normal left ventricle size and function. Right Ventricle Normal right ventricle structure and function. Left Atrium The left atrium is normal. There is evidence of a patent foramen ovale by color Doppler. Right Atrium Normal right atrial size. Mitral Valve Trivial mitral regurgitation by color Doppler. Aortic Valve Normal aortic valve structure and function. Tricuspid Valve Trivial tricuspid regurgitation by color Doppler. There is moderate pulmonary hypertension. The pulmonary pressure (RVSP) is 44.38 mmHg. Pulmonic Valve Normal pulmonic valve structure and function. Pericardial Effusion No evidence of pericardial effusion. Miscellaneous Visualized portions of the aortic root and ascending aorta appear normal in size. Pleural Effusion No evidence of pleural effusion. Contractility Score LV regional wall motion:(0-Non visualized 1-Normal 2-Hypokinesis 3-Akinesis 4-Dyskinesis 5-Aneurysm) Signature dtt: Lily Kaiser dtd: 08/11/16 0922 Physician Self Edit
--- NOTE | ~2016-08-11 | CON ---
PATIENT'S NAME: SAWYER VAZQUEZ [facility] AGE: 31 Y [address] ROOM: [id number] [place], [place] [address] LOCATION: [facility] ADMIT DATE: 08/11/2016 Consultation DISCHARGE DATE: FAMILY PHYSICIAN: Maynor Whitfield ATTENDING PHYSICIAN: TORITO CHANDLER V DATE OF CONSULTATION: 08/11/2016 REFERRING PHYSICIAN: Ward Claros MD TIME OF CONSULTATION: 2:00 p.m. 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. She was working in [facility] [employer] in [place]. She states that she has always had a migraine headache for many years, but had to present to the emergency room due to worsening of her migraine headaches. She apparently had been treated by a physician in [facility] plus other ER's including in [place]. She was coming in complaining about persistence of migraine headaches. There, at these hospitals, she had been receiving many cocktails of different medications including nonsteroidal anti-inflammatories with Compazine as well as opiates. The more she had been put on intermittent dosing of steroids, thinking that this may actually be of help to her. She continued to have multiple complaints and supposedly resistant headaches and came back to the emergency rooms. There was a concern by the emergency room personnel that she was opiate seeking and red flags that she may be expressing opiate-seeking behaviors was raised. Other issues seem to also take place such as new onset of diabetes with the patient who is not watching her sugar and reported readings of her sugars were into the 300 range. She reportedly had to be treated at one ER for her asthmatic and diabetic state. At one time, she described being treated with insulin that brought her sugars down so low into the range of 31, seemed to be an overshoot based upon the patient being severely dehydrated and likely requiring just some rehydration. Even there was a period where the patient became progressively altered in her mental status and she had to receive Narcan. According to the patient, she was sent here for further control of her migraine headaches, with the thought that the patient should have a lumbar puncture to rule out the possibility of pseudotumor cerebri due to her obesity. Essentially, in talking to the patient, I was very confused about the history and the history came in bits and pieces, did not necessarily make much sense. We will consider the patient should immediately state that she gets a "cocktail of medications that work fine for her," and she gave the listing of these medications, which included 2 L of normal saline, Decadron, Phenergan, Ativan, and 2 mg of Dilaudid. There PATIENT'S NAME: SAWYER VAZQUEZ [facility] AGE: 31 Y [address] ROOM: [id number] [place], [place] [address] LOCATION: [facility] ADMIT DATE: 08/11/2016 Consultation DISCHARGE DATE: FAMILY PHYSICIAN: Maynor Whitfield ATTENDING PHYSICIAN: TORITO CHANDLER V was a 2 mg of Dilaudid that immediately struck me as something that has to be avoided in this patient. I clearly having some issues with opiate dependence and possibility of drug-seeking issues. There was also possibility that the patient may have had issues with respiratory distress due to opiate use. All in all, I had a discussion with the patient that we will do conservative management here in the hospital as would be the necessary protocol as anybody would do in a clinic setting or in the emergency room. I discussed with her that opiates do not in any way form a standing basis of treatment for migraine headaches in the acute setting and that the use of sumatriptan, DHE, nonsteroidal anti-inflammatories, minus Decadron with Phenergan would likely form the basis for treatment. Immediately, the patient became argumentative with me and I discussed with the patient that she has to speak to the hospitalist concerning the use of opiates. At this point of this dictation, I have learned that the patient fired her hospitalist upon her not receiving opiates supposedly for proper management of migraine headaches. When I saw the patient, I had a long discussion about migraine headaches in general and how they are controlled. I discussed with her the nature of opiate medication that can cause rebound headaches on a daily basis and they could cause other medications to lose their potency in control of migraine headaches in the retirement. It is clear that the patient had not been on any migraine prophylactic medication at this time and I discussed with her that I would like to place her on verapamil 120 mg daily. I used this in our clinic very successfully and this will form the basis of migraine prophylaxis in the setting of use of medications that was just mentioned. All in all, when speaking to the patient, she did not look to be in any acute distress. She did not appear to be in pain. She was stating that she must get her medications now even in the setting of my planning to have her set up for a lumbar puncture. The plan for lumbar puncture was to get an opening pressure. Based upon this being an important issue, we must rule out for a diagnosis of pseudotumor cerebri. Due to the fact that the patient had already received anticoagulant on 3 doses, this would have to be delayed at least 24 hours. As of the standing of this note, the patient has treated here properly based on standard of care for migraine treatment and with all efforts to avoid opiate use. PRIOR MEDICAL HISTORY: History of obesity, polycystic ovarian disease, long history of migraine headaches going back to childhood. She says that she has received Botox injections in the past. She also has a history of tobacco dependence, questionable history of opiate-seeking behaviors. She also has a psychiatric history consistent with borderline personality disorders. She has history of irritable bowel disorder and history of asthma. There is a questionable history also of congestive heart failure. SOCIAL HISTORY: She apparently is . The was here in the room. He was not PATIENT'S NAME: SAWYER VAZQUEZ [facility] AGE: 31 Y [address] ROOM: [id number] [place], [place] [address] LOCATION: [facility] ADMIT DATE: 08/11/2016 Consultation DISCHARGE DATE: FAMILY PHYSICIAN: PhysicianMaynor ATTENDING PHYSICIAN: TORITO CHANDLER, did not give me much information concerning his 's current medical issues. She currently smokes prior to this admission at least half a pack of cigarettes a day. 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 No further information is really given by the patient. FAMILY HISTORY: Not been reviewed, but she briefly stated that she has migraine headaches and it does not run in the family. MEDICATIONS: Brief list of medications that the patient was on at different times, though not necessarily at this admission included: 1. Lisinopril. 2. Verapamil. 3. Tizanidine. 4. Bentyl. 5. Clonazepam. 6. Robaxin. 7. Voltaren. 8. Phenergan. 9. Gabapentin. 10. Trazodone. 11. Wellbutrin. 12. Dihydroergotamine nasal spray used on a daily basis for aborting a migraine. 13. Ipratropium bromide and albuterol for asthma as well as Advair 500/50 for asthma. REVIEW OF SYSTEMS: Ms Vazquez has had admissions in the recent past for migraine headaches. There is a questionable history of opiate overuse. She comes in also presently with a pulmonary issue where a recent chest CT showed a possibility of a small pulmonary embolism in the right lower lobe. However, a Qscan was performed and this was within normal limits. Therefore, Pulmonary Service adamantly believes that the patient does not have pulmonary embolism, discontinued anticoagulation. Pulmonary history is significant for asthma. She does have other significant history including possible new onset of diabetes. Hemoglobin A1c was recently checked and within normal limits. She does have a history of polycystic ovarian disease. Rest of a 10-point review of systems is essentially within normal limits for this admission. PHYSICAL EXAMINATION: GENERAL: The patient is sitting in her bed. She is friendly to me, though very terse in asking for medication. She demands a certain list of PATIENT'S NAME: SAWYER VAZQUEZ [facility] AGE: 31 Y [address] ROOM: [id number] [place], [place] [address] LOCATION: [facility] ADMIT DATE: 08/11/2016 Consultation DISCHARGE DATE: FAMILY PHYSICIAN: Maynor Whitfield ATTENDING PHYSICIAN: TORITO CHANDLER V medications that she says works for her all the time. It does not look to be in pain, does not look to be annoyed. She is conversational with her and able to give me an adequate history with very little elaboration and I sensed a tendency to not be straightforward. VITAL SIGNS: Revealed a pulse of 56 and regular, respiration rate 15 blood pressure 115/58, and temperature is 36.8. CRANIAL NERVES: 2 through 12 was intact. Motor exam revealed 5/5 power in upper and lower extremities proximally and distally. Normal bulk and tone. There was normal coordination on testing of [id number]. Rapid alternating hand movements were intact. She had normal sensory exam. Reflexes were symmetric and +1 at the biceps, triceps, patellar reflexes +1. Trace reflexes at the ankle. The patient was not ambulated. IMPRESSION: Ms Vazquez is a patient with a longstanding history of migraine headaches. I discussed with her that we will start her on a migraine prophylactic medication, which she does not have currently. This will serve as the basis for cutting back on the intensity of her migraines and the frequency of the migraines. This will take some time to kick in at least 4-5 days, but will nonetheless be very helpful for her over the course of the next coming weeks. I am starting her on 120 mg of verapamil with a goal to increase it to twice a day dosing in about 1 week. It seems that she was possibly on this medication in the past, but at a very low dose that is likely ineffective. Medication can be weaned up over the course of the year for trying to abort her migraine and it is very difficult to assess the level of her pain currently. I did follow the patient's recommendations by giving her a trial of 250 mg IV of Solu-Medrol as well as Phenergan 0.5 mg. so, I started with a high flow of oxygen given via nasal cannula and moisture. Giving oxygen is often successful in aborting a migraine in an ongoing course of potential history of CHF, I did not necessarily want to give a Triptan though DHE is a medication that she supposedly was on at home, which sounds as though she was using on a daily basis, which is certainly contraindicated and ineffective. However, for aborting a migraine headache ongoing up to 3 mg of DHE can be given IV, which may be more effective. Thus, I set DHE with a lower testing dose at 0.5 mg to increase it to 0.75 mg and then finally 1 mg with a scheduled dosing of q.8 hours. I did not want to overuse this medication as the effect should be known at least by the third dose. With this is ongoing, she demanded to have opiates, which again I explained to her should not be a standard of care for migraine headaches and a review of literature concerning migraines does not support the use of opiates in the acute setting of emergency nor at any point during headache treatment. Recommended that the patient have a lumbar puncture set up and as this dictation, the patient had an opening pressure that was within normal limits at 20 cm of water. Essentially, would rule out that the patient has a secondary issue for migraine headaches that being pseudotumor cerebri. Normal pressure almost certainly would do away with this PATIENT'S NAME: SAWYER VAZQUEZ [facility] AGE: 31 Y [address] ROOM: [id number] [place], [place] [address] LOCATION: [facility] ADMIT DATE: 08/11/2016 Consultation DISCHARGE DATE: FAMILY PHYSICIAN: Physician, New ATTENDING PHYSICIAN: TORITO CHANDLER V diagnosis. At this point in time, the patient continues to intermittently ask for medications for migraine and I have been firm with the patient that we would want to wait for the verapamil, a medication that is quite effective to take its course and that no immediate cure for migraines could be given to the patient. I am very firm that certain overuse of medications may be playing a role here in rebound headaches, why she has a severe migraine and it becomes a chronic low-grade headache. This is called a converted migraine, it is almost always due to chronic use of opiates, or chronic use of nonsteroidals, or overuse of medications like the intranasal DHE. Continue to assist the Hospitalist Service on the patient's status here. MD FABIENNE ABRAHAM/matthew /[id number] d: 08/14/16 0243 t: 08/24/16 1738, CONSULTATION REPORT
--- NOTE | ~2016-08-11 | ENPV ---
Vascular Upper Extremities Veins Procedure Demographics Patient Name SAWYER VAZQUEZ Date of Study 08/14/2016 Patient Number [id number] Gender Female Date of 1985 Age 31 Visit Number [id number] Height 66 Weight 272.01 Number Referring Leo Uriostegui MD Physician Physician Physician Ordering Leo Vera V Laborer [employer] Physician Machine Assistant Nancy Chen [facility], T Conclusions Summary No evidence of deep vein thrombosis in the left upper extremity, but there is superficial thrombophlebitis in the axillary to mid forearm basilic vein, and proximal to distal forearm cephalic vein. Procedure Type of Study: Veins:Upper Extremities Veins, Upper Extremity Left. Indications for Study:Pain in Limb. Appropriate Use Criteria:9 Patient Status:Routine. Study Location:Inpatient Portable. Technical Quality:Adequate visualization. - Preliminary reported to:Dr. Paige. Velocities are measured in cm/s ; Diameters are measured in cm Right UE Vein Measurements 2D and Doppler Measurements + + + + +--------+--------+ !Location !Visualized !Compressibility !Thrombosis !Signal !Reflux ! + + + + +--------+--------+ !IJV !Yes !Yes !None !Phasic ! ! + + + + +--------+--------+ !Innominate !Yes !No !None !Phasic ! ! + + + + +--------+--------+ Left UE Vein Measurements 2D and Doppler Measurements + + + + +--------+--------+ !Location !Visualized !Compressibility !Thrombosis !Signal !Reflux ! + + + + +--------+--------+ !IJV !Yes !Yes !None !Phasic ! ! + + + + +--------+--------+ !SCV !Yes !Yes !None !Phasic ! ! + + + + +--------+--------+ !Innominate !Yes !Yes !None !Phasic ! ! + + + + +--------+--------+ !Axillary !Yes !Yes !None !Phasic ! ! + + + + +--------+--------+ !Brachial !Yes !Yes !None !Phasic ! ! + + + + +--------+--------+ !Radial !Yes !Yes !None ! ! ! + + + + +--------+--------+ !Ulnar !Yes !Yes !None ! ! ! + + + + +--------+--------+ !Basilic !Yes !No !Sub-acute !Absent ! ! + + + + +--------+--------+ !Cephalic !Yes !No !Sub-acute !Absent ! ! + + + + +--------+--------+ Signature dtt: PAPI BRITO dtestrellita: 08/14/16 0946 Physician Self Edit
[~2016-08-11 01:38] MED LIST changes: -ACCU-CHEK1 EAC1; -BOTOX; -DELTASONE10 MG PO; -DESYREL50 MG PO; -FIORICET 50-301 EACH PO; -HUMALOG100 UNIT/1 SUB-Q; -HYDROCODON-ACE1 EAC6 PO; -IMITREX6 MG/0.5 M SUB-Q; -K-TAB 10MEQ10 MEQ PO; -LASIX20 MG PO; -LEVAQUIN 750 M750 MG PO; -LITHIUM CARBON300 MG PO; -LYRICA 150MG C150 MG PO; -SEROQUEL200 MG PO; -ULTRAM50 MG PO; -WELLBUTRIN SR150 MG PO; -XARELTO15 MG PO; -XARELTO20 MG PO
--- NOTE | 2016-08-11 07:44 | NUR ---
THE PATIENT LIVES IN [facility] WITH HER . SHE WAS RECENTLY ADMITTED TO THE ICU FOR HYPOGLYCEMIA AND WAS INTUBATED. SHE WAS DISCHARGED ON Monday08/05/16. SINCE THEN SHE HAS HAD A MIGRAINE, SOB, CHEST DISCOMFORT, N/V. SHE HAS BEEN IN AND OUT OF THE [facility] AND HAD A CT SCAN DONE ON MONDAY WHICH REVEALED A SMALL PE IN THE RIGHT LOWER LOBE WELL PLEURAL EFFUSIONS. MONDAY SHE WAS GOING TO BE TRANSFERRED TO [facility] FOR MIGRAINE, SOB, AND LOW O2 SATS BUT REFUSED TRANSFER DUE TO FINANCIAL AND WORK RELATED ISSUES. SHE THEN WENT BACK TO THE ER ON MONDAY NIGHT FOR THE SAME SYMPTOMS AND WAS TRANSFERRED HERE BY AMBULLANCE. SHE ARRIVED TO THE UNIT AT 0445 ON 08/11/16. SHE IS ALERT AND ORIENTED, NO IV ACCESS. COMPLAINTS OF MIGRAINE HEADACHE, SOB, AND CHEST DISCOMFORT. VSS. ON 1L OXYGEN PER NC. PUPILS ARE EQUAL AND REACTIVE. DULL SENSATION AND N/T TO THE RIGHT EXTREMITIES, SHE ALSO HAS SOME BLURRED VISION. SHE HAS A LONG HEALTH HX INCLUDING CHF, ASTHMA, ARTHRITIS, DIABETES, IBS, POLY CYSTIC OVARIAN SYNDROME, PSYCH HX INCLUDING DEPRESSION, ANXIETY, PTSD, PANIC ATTACKS, BORDERLINE PERSONALITY DISORDER, SHE ALSO HAS A HX OF HTN, AND (MIGRAINES IN WHICH SHE USE TO GET TREATED WITH BOTOX). ALLERGIES TO METOPROLOL, LATEX, AND ADHESIVE TAPE.
[2016-08-11 08:12] LABS: BASOPHIL # 0.1 K/uL (0.0-0.2); BASOPHIL % 0.4 %; EOSINOPHIL # 0.4 K/uL (0.0-0.5); EOSINOPHIL % 3.7 %; HEMATOCRIT 35.4 % (33.0-46.0); HEMOGLOBIN 10.9 g/dL (11.0-15.0); IMMATURE GRANULOCYTE # 0.1 K/uL (0.0-0.3); LYMPHOCYTE # 3.2 K/uL (0.8-4.0); LYMPHOCYTE % 29.1 %; MCH 28.1 pg (27.0-34.0); MCHC 30.8 gm/dL (32.0-36.5); MCV 91.2 fl (83.0-98.0); MONOCYTE # 0.6 K/uL (0.0-1.0); MONOCYTE % 5.2 %; MPV 9.4 fl (9.4-12.4); NEUTROPHIL # (ANC) 6.7 K/uL (1.8-7.8); NEUTROPHIL % 60.6 %; NRBC % 0 /100WBC (0-0.00); RBC 3.88 M/uL (3.50-5.50); WBC 11.1 K/uL (4.0-11.0)
[2016-08-11 08:13] LABS: PLATELET COUNT 297 K/uL (150-450)
[2016-08-11 08:25] LABS: ALBUMIN 2.8 gm/dL (3.5-5.0); ALK PHOS 62 IU/L (33-138); ALT 17 IU/L (12-78); ANION GAP 12.5 (10.0-19.0); AST 12 IU/L (10-40); BLOOD UREA NITROGEN 13 mg/dL (6-24); CALCIUM 7.9 mg/dL (8.5-10.5); CHLORIDE 113 mMol/L (96-110); CO2 24 mMol/L (22-32); CREATININE 0.9 mg/dL (0.5-1.1); ESTIMATED GFR (MDRD EQUATION) > 60; MAGNESIUM 2.4 mg/dL (1.8-2.6); PHOSPHORUS 4.8 mg/dL (2.5-4.9); POTASSIUM 4.5 mMol/L (3.7-5.1); SODIUM 145 mMol/L (135-145); TOTAL BILIRUBIN 0.2 mg/dL (0.0-1.5); TOTAL PROTEIN 6.2 g/dL (6.0-8.4)
[2016-08-11] MEDS ORDERED: XARELTO15 MG PO (11:06)
[2016-08-11] MEDS ORDERED: XARELTO20 MG PO (11:08)
[2016-08-11] MEDS ORDERED: LASIX20 MG PO (11:09)
[2016-08-11] MEDS ORDERED: K-TAB 10MEQ10 MEQ PO (11:09)
[2016-08-11] MEDS ORDERED: ULTRAM50 MG PO (11:10)
[2016-08-11 11:12] LABS: BILIRUBIN URINE NEGATIVE (NEGATIVE); BLOOD URINE 250 /UL (NEGATIVE); COLOR URINE BROWN (YELLOW); GLUCOSE URINE NEGATIVE (NEGATIVE); KETONE URINE NEGATIVE (NEGATIVE); LEUKOCYTES URINE 25 /UL (NEGATIVE); NITRITE URINE NEGATIVE (NEGATIVE); PROTEIN URINE 30 mg/dL (NEGATIVE); TURBIDITY URINE CLEAR (CLEAR); UROBILINOGEN URINE NORMAL (NORMAL)
[2016-08-11 11:18] LABS: BACTERIA URINE RARE (NEGATIVE); RBC URINE 50-100 #/HPF (NEGATIVE)
--- NOTE | 2016-08-11 13:34 | NUR ---
1100 Stopped by to visit with Erika but she was out of her room for a procedure so I will stop back by and see her later. CM to continue to follow and assist.
--- NOTE | 2016-08-11 19:12 | NUR ---
Significant Event: A/O X3, 1 assist/gait belt, slight unsteady gait. Powerglide to LUE saline locked, voids per toilet, having menses. nausea with excellent appetite. head & chest pain- tylenol x1, ultram x1, o2 1l/nc, scattered wheezes clear w/ coughing, smoker's cough, Follow up: Dr. Joshua & Dr. Claros to consult.
--- NOTE | 2016-08-12 04:33 | NUR ---
Significant Event: Patient A/O x 3. N/T, dullness to right hand and right foot. Perrla. Headache constant, rated at a 9. Given PRN meds with no relief. MD notified. Right side weaker than left. Room air. Midline to MEGAN GUERRERO. VSS. SBA. Follow up: Pain control.
--- NOTE | 2016-08-12 11:07 | NUR ---
A - PT SCREENED D/T MST PER RECORD, ABOUT 4.6% WEIGHT LOSS IN 1 WEEK, RECENTLY DISCHARGED. PT REPORTED ABOUT 20-30# WEIGHT LOSS IN 1-1.5 MONTHS. HAD 50# OF WEIGHT LOSS IN THE MONTH OF LAST YEAR PER PT. HT: 167.64 CM, WT: 272#, BMI: 44.0, IBW: 59 KG, %IBW: 210% LABS: ALB 2.8, TG 257, VLDL 49, A1C 5.9% (08/05) MEDS: ZOFRAN, REGLAN DIET: REGULAR. INTAKE 100% X3 MEALS 08/11. HOWEVER, PT REPORTED POOR APPETITE, EATS VERY MINIMAL AT HOME. PER SHIFT REPORT, NAUSEOUS BUT EXCELLENT APPETITE. ALLERGY TO CASHEW AND ZUCCHINI. DISCUSSED LIKES AND DISLIKES. LEFT SOME NUTRITION SUPPLEMENT COUPONS WITH PT. EST NEEDS: [id number] KCAL (11-14 KCAL/KG), 71-89 GRAMS PROTEIN (1.2-1.5 GRAMS/KG IBW), FLUID NEEDS: 1ML/KCAL D - UNINTENTIONAL WEIGHT LOSS RELATED TO ALTERATION IN APPETITE EVIDENCED BY 4.6% WEIGHT LOSS IN 2 WEEKS AND PT REPORT. I - PT AGREED TO TRY HIGH PROTEIN SNACK ONCE DAILY AND GLUCERNA ONCE DAILY. M/E - GOAL: PT WILL BE ABLE TO TOLERATE >75% OF MEALS AND AT LEAST ONE ORAL SUPPLEMENT/SNACK PER DAY IN 4-6 DAYS. PLAN: WILL MONITOR WT.
--- NOTE | 2016-08-12 15:28 | NUR ---
Talked with GUERRERO Monte at [facility], she let me know that she faxed records over to the office to put on David' chart for our MDs to see her. She also had some questions about what tests had been done while Erika has been with us. Answered those questions for Claudia. She also indicated to me that they have had lots of recents interactions with Erika and it has been recommended that she have a psych eval done in the near future. Claudia states that there is "some question about her psych history and she also has some issues with pain medications medications along with the stress of losing her job recently so I think our physcians here would just really like for an appointment to try to be made before she leaves with you guys." They have asked that she get one set up for when she leaves. Claudia states the one that would be in town near her would be [facility], , so if we could try to set her up with an appointment that would be great. Let Claudia know I would try to do so. I called [facility], but no one answered, I requested that they call me back so I could set up an appointment for Erika before she left. Stated if it was after 1600 today, that they would need to call Erika to set up the appointment as I would be gone for the day/weekend. No call back has happened at this point. I did try to go and see Erika, but she was in with and was having "lots of anxiety issues" per her RN Kristen, so I didn't go in and interrupt the conversation that Erika and were having. I let Kristen know that most likely she would be able to dismiss to home when she was cleared to do so. Her is in the room most times with her so I would guess he would take her home. CM to continue to follow and assist. Plan home.
--- NOTE | 2016-08-12 16:19 | NUR ---
Significant Event:PT IS AAOX3. C/O DOUBLE AND BLURRY VISION. SENSITIVE TO LIGHT AND SOUNDS. R) SIDE IS WEAKER THAN L). SHE STATES IT IS DUE TO SCIATICA. LUNG SOUNDS CLEAR. ON RA. ACTIVE BS. NO BM THIS SHIFT. SCATTER BRUISING. ALSO HAS SOME OLD SCABS TO LOWER ABD AND BACK. L) UPPER MIDLINE. R) WRIST PIV. SL'D. REGULAR DIET. HAD ZOFRAN AT 1513 AFTER HER DHE. DID GET ONE TIME DOSE OF SOLUMEDROL AND PHENERGAN. ULTRAM LAST 1350. PAIN AT 8 OR 9 ALWAYS. MD AWARE. STATES HE DOES NOT WANT TO GIVE NARCOTICS. PLANS FOR LP TOMORROW AROUND 2. Follow up:PAIN.
--- NOTE | 2016-08-13 04:17 | NUR ---
Significant Event: A&OX3. Migrain pain contantly rates at 8 or 9 out of 10. Sensitive to light and sound. Has blurred vision. Pt states R) side is slightly weaker than L) but strength seems equal when testing movement in bed. Has dull numb sensation to R) leg. Up SBA to independent moves without difficulty. On tele SR to SB at times. On 3L of O2 for comfort for pt. Regular diet. Phenergan and zofran given during the night for nausea due to DHE IV given. Pt complained of chest pain during the night pt stated she thought it was anxiety due to LP today. MD called and made aware he said to given her tylenol and that she has had chest pain since she has arrived. Scabs to back and abdomin from martinez. Midline to L) upper arm. IV to R) forearm SL. Ultram given for migrain. Follow up: LP Today around 1400 permits are on chart but still need signed R&B still need discussed. Orders for LP are labs are on the chart.
[2016-08-13 11:54] LABS: CPK 39 IU/L (21-215)
--- NOTE | 2016-08-13 15:02 | NUR ---
Significant Event: A/O X3, SBA -up in room, @ bedside, showered, lungs clear - reports SOB, Room Air, vision remains blurred/double since before admission, head & chest pain ultram x1, dull/numbness to RLE, BM x2, nausea off & on, R)wrist saline lock, L)Powerglide saline lock. Follow up: awaiting LP, premed w/ ativan prior to LP, cardiac enzymes x3 possible discharge tomorrow.
[2016-08-13 17:02] LABS: CPK 46 IU/L (21-215)
--- NOTE | 2016-08-13 19:00 | NUR ---
Today patient requested another physician and no longer wanted Dr. Hatfield as her primary physician. She stated that he was not doing anything for her and would not give her the "concoction" that she was wanting. She told me that Phenergan and Dilaudid were a couple of the medications she wanted. The patient then told me that hopefully the new doctor would give her what she wanted. She also told me that Dr. 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 When I talked to Dr. Hatfield he said he was fine with that and he was going to have Dr. Mistry see her.
[2016-08-14] LABS: CPK 30 IU/L (21-215)
--- NOTE | 2016-08-14 04:50 | NUR ---
Significant Event: Pt A&Ox3. VS stable, remains on 3L. No real c/o pain overnight, did give tylenol and tramadol together @ 0417 with phenergan. Pt c/o overnight that her "blood sugar was low". BS taken and was 131. Up ad fabian, SBA to bathroom with good UO. Still has weaker grasp, plantar/dorsiflexion on Rt side. Remains steady on feet when walking to bathroom. LS remain clear. Follow up: Continue plan of care. Discharge today?
[2016-08-14] MEDS ORDERED: LITHIUM CARBON300 MG PO ×2 (15:01)
[2016-08-14] MEDS ORDERED: HUMALOG100 UNIT/1 SUB-Q (15:01)
[2016-08-14] MEDS ORDERED: LEVAQUIN 750 M750 MG PO (15:02)
[2016-08-14] MEDS ORDERED: LYRICA 150MG C150 MG PO (15:02)
[2016-08-14] MEDS ORDERED: DELTASONE10 MG PO (15:02)
[2016-08-14] MEDS ORDERED: SEROQUEL200 MG PO (15:02)
[2016-08-14] MEDS ORDERED: FIORICET 50-301 EACH PO (15:04)
[2016-08-14] MEDS ORDERED: IMITREX6 MG/0.5 M SUB-Q (15:04)
--- NOTE | 2016-08-14 16:49 | NUR ---
written and verbal dismissal instructions given to pt. and including diet, activity, prescriptions, blood clot prevention, and follow up care. verbalized understanding. escorted per w/c to ride home in stable condition.
== END 2016-08-14 16:47 | disposition disaster alternative care site (69) | DRG 102 ==
LOC: GNTU 01:38 → GICU 04:36
PROVIDERS: Internal Medicine; ADMIT Internal Medicine
DX: G43.819 Other migraine, intractable, without status migrainosus (principal); I26.99 Other pulmonary embolism without acute cor pulmonale; Z68.41 Body mass index [BMI] 40.0-44.9, adult; I50.9 Heart failure, unspecified; R16.2 Hepatomegaly with splenomegaly, not elsewhere classified; E66.01 Morbid (severe) obesity due to excess calories; I11.0 Hypertensive heart disease with heart failure; E28.2 Polycystic ovarian syndrome; F31.9 Bipolar disorder, unspecified; F41.9 Anxiety disorder, unspecified; J45.909 Unspecified asthma, uncomplicated; F17.200 Nicotine dependence, unspecified, uncomplicated; F60.3 Borderline personality disorder; E11.9 Type 2 diabetes mellitus without complications; Z76.5 Malingerer [conscious simulation]; G89.4 Chronic pain syndrome; Z79.01 Long term (current) use of anticoagulants; R09.02 Hypoxemia
CPT/HCPCS: A9539; A9540; C1751; J1110; J1650; J2060; J2405; J2550; J2765; J2930; J3030; J7040; J7050; Q0162

== ENCOUNTER 2016-08-18 12:00 | Observation (INO) | payer BC ==
[~2016-08-18] VITALS: Ht 167.6 cm; Wt 122.8 kg
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
[~2016-08-18 12:00] MED LIST changes: +DELTASONE10 MG PO; +FIORICET 50-301 EACH PO; +HUMALOG100 UNIT/1 SUB-Q; +IMITREX6 MG/0.5 M SUB-Q; +K-TAB 10MEQ10 MEQ PO; +LASIX20 MG PO; +LEVAQUIN 750 M750 MG PO; +LITHIUM CARBON300 MG PO; +LYRICA 150MG C150 MG PO; +SEROQUEL200 MG PO; +ULTRAM50 MG PO; +XARELTO15 MG PO; +XARELTO20 MG PO
[2016-08-18] MEDS ORDERED: BOTOX (15:44)
[2016-08-18] MEDS ORDERED: WELLBUTRIN SR150 MG PO (15:44)
[2016-08-18] MEDS ORDERED: DESYREL50 MG PO (15:45)
[2016-08-18] MEDS ORDERED: PHENERGAN25 M1 PO (15:46)
[2016-08-18] MEDS ORDERED: HYDROCODON-ACE1 EAC6 PO (15:54)
[2016-08-18] MEDS ORDERED: FIORICET 50-301 EACH PO (15:57)
[2016-08-18 18:23] LABS: BILIRUBIN URINE NEGATIVE (NEGATIVE); BLOOD URINE NEGATIVE /UL (NEGATIVE); COLOR URINE YELLOW (YELLOW); GLUCOSE URINE NEGATIVE (NEGATIVE); KETONE URINE NEGATIVE (NEGATIVE); LEUKOCYTES URINE NEGATIVE /UL (NEGATIVE); NITRITE URINE NEGATIVE (NEGATIVE); PROTEIN URINE NEGATIVE (NEGATIVE); SPEC GRAVITY URINE 1.005 (1.003-1.035); TURBIDITY URINE CLEAR (CLEAR); UROBILINOGEN URINE NORMAL (NORMAL)
--- NOTE | 2016-08-18 18:25 | NUR ---
PATIENT A/OX3, VS-120/74, 98.1, 18, 88, 96% ON ROOM AIR. PT. GETS UP SBA TO BATHROOM. COMPLAINTS OF BACK PAIN, WAITING FOR DRKatrin TO COME BACK UP TO SEE PATIENT. BLOOD SUGAR THIS AM IN [place] WAS IN THE 30, PT. UNRESPONSIVE WHEN COMING IN, THEN TRANSFER GSH FOR HYPOGLYCEMIA. HX: BIPOLAR, PERSONALITY DISORDER. PT. HAS BED AT [facility] AND WILL D/C THERE WHEN STABLE. IV TO R)AC HAS D10W @ 150mL/HR. BLOOD SUGAR WAS 39 UPON ADMISSION, THEN 46 ON RECHECK, PT. GIVEN 1/2AMP OF D50 AND ATE, THEN STARTED ON IVF, LAST BS WAS 123 @ 1715. HOME MEDS STILL NEED ADDRESSED.
[2016-08-18 18:29] LABS: ANION GAP 9.4 (10.0-19.0); BLOOD UREA NITROGEN 11 mg/dL (6-24); CALCIUM 8.4 mg/dL (8.5-10.5); CHLORIDE 112 mMol/L (96-110); CO2 27 mMol/L (22-32); CREATININE 0.7 mg/dL (0.5-1.1); ESTIMATED GFR (MDRD EQUATION) > 60; MAGNESIUM 2.3 mg/dL (1.8-2.6); PHOSPHORUS 3.1 mg/dL (2.5-4.9); POTASSIUM 4.4 mMol/L (3.7-5.1); SODIUM 144 mMol/L (135-145)
[2016-08-19 03:55] LABS: BASOPHIL % 0.1 %; EOSINOPHIL # 0.1 K/uL (0.0-0.5); EOSINOPHIL % 0.5 %; HEMATOCRIT 34.9 % (33.0-46.0); HEMOGLOBIN 10.9 g/dL (11.0-15.0); IMMATURE GRANULOCYTE # 0.1 K/uL (0.0-0.3); IMMATURE GRANULOCYTE % 0.7 %; LYMPHOCYTE # 4.4 K/uL (0.8-4.0); LYMPHOCYTE % 26.9 %; MCH 28.1 pg (27.0-34.0); MCHC 31.2 gm/dL (32.0-36.5); MCV 89.9 fl (83.0-98.0); MONOCYTE # 0.7 K/uL (0.0-1.0); MONOCYTE % 4.1 %; MPV 9.1 fl (9.4-12.4); NEUTROPHIL % 67.7 %; NRBC % 0 /100WBC (0-0.00); RBC 3.88 M/uL (3.50-5.50); RDW-CV 15.9 % (11.9-14.6)
[2016-08-19 04:03] LABS: PLATELET COUNT 412 K/uL (150-450); WBC 16.2 K/uL (4.0-11.0)
[2016-08-19 04:19] LABS: ALBUMIN 2.8 gm/dL (3.5-5.0); ALK PHOS 61 IU/L (33-138); ALT 22 IU/L (12-78); ANION GAP 9.2 (10.0-19.0); AST 9 IU/L (10-40); BLOOD UREA NITROGEN 11 mg/dL (6-24); CALCIUM 8.2 mg/dL (8.5-10.5); CHLORIDE 111 mMol/L (96-110); CO2 26 mMol/L (22-32); CREATININE 0.7 mg/dL (0.5-1.1); ESTIMATED GFR (MDRD EQUATION) > 60; POTASSIUM 4.2 mMol/L (3.7-5.1); SODIUM 142 mMol/L (135-145)
[2016-08-19 04:24] LABS: TOTAL BILIRUBIN 0.1 mg/dL (0.0-1.5)
--- NOTE | 2016-08-19 04:31 | NUR ---
Significant Event: A/0X3. RESTED IN BED ALL OF SHIFT. TURNS SELF. AFEBRILE. VSS ON RA. SCHEDULED PAIN MEDS ALONG WITH PRN NORCO X1 AND IMITREX WAS GIVEN THIS SHIFT. PATIENT WAS ABLE TO FIND RELIEF AND REST COMFORTABLY AFTERWARDS. IV TO R) AC SL. IV TO R) UPPER ARM HAS D10W @ 125 ML/H. ACCUCHECK Q 4 HRS. [phone]. VOIDS FINE. NO BM THIS SHIFT. GAVE PRN TRAZADONE PER PATIENT REQUEST. PATIENT WAS ABLE TO SLEEP OFF AND ON THROUGHOUT THE NIGHT. PSYCH CONSULT THIS AM. Follow up: CONTINUE WITH PLAN OF CARE.
--- NOTE | 2016-08-19 09:11 | NUR ---
PT SCREENED D/T (+) MST. WT LOSS NOT SIGNIFICANT, BMI REMAINS IN MORBIDLY OBESE RANGE. INTAKE 75-100%. WILL ASSIST NEEDED.
[2016-08-19] MEDS ORDERED: ULTRAM50 MG PO (10:14)
[2016-08-19] MEDS ORDERED: SINGULAIR10 MG PO (10:14)
[2016-08-19] MEDS ORDERED: LIDOCAINE1 EACH TRANS (10:15)
[2016-08-19] MEDS ORDERED: ZONISAMIDE100 MG PO (10:15)
[2016-08-19] MEDS ORDERED: PROMETH-CODEIN 65 ML PO (10:16)
[2016-08-19] MEDS ORDERED: LARIN 21 1-201 EACH PO (10:16)
[2016-08-19] MEDS ORDERED: LASIX20 MG PO (10:17)
[2016-08-19] MEDS ORDERED: K-TAB 10MEQ10 MEQ PO (10:17)
[2016-08-19] MEDS ORDERED: COMBIVENT RESPIM4 GM INH (10:18)
--- NOTE | 2016-08-19 12:21 | NUR ---
Reviewed chart and talked with psychiatrist Dr Agarwal outside pt room after his consultation. He reports pt does not meet criteria for inpatient psychiatric hospitalization as she denies being suicidal or homicidal. He reports pt does not want inpatient psychiatric hospitalization and not voluntarily willing to go, not a candidate for EPC. She does have bipolar disorder and he questions Munchausen but no clearcut evidence of that so unable to diagnose that. He recommends continuing outpatient counseling. I introduced self and care management services to patient. Lives in [place] with spouse. Plans on going home on discharge. Discussed Dr Agarwal recommendation of continuing outpt counseling, she is willing to agree to outpt counseling. Asked her if she is currently going to outpt mental health counseling or has a preference of somewhere to go. She says she has not set anything up but would like to go to [facility] in [place] because she is supposed to be starting work in [place] on Monday next week. Asked if she would like me to try to set up her first appointment and she said yes. Called [facility] in [place], and got their voicemail, left voicemail to please call me back today to set up first appt for patient, pt going home on weekend so if does not call me back today to please call patient and left name and phone number on voicemail for them to call her to set up appt. Talked with patient again and let her know this and gave her the phone number to [facility] and told her to call once she gets home if they don't call me back today or they don't call her. She says she will. Later in morning nurse found me to ask me to talk with her again as she is requesting social work visit. Talked with patient again and let her know I can help guide her in resources. She says she was supposed to start work in [place] and that didn't work out, will start work in [place] next week, in the meantime spouse without a job and looking and they have no money, a pulmonologist intensivist in [place] arranged an apartment in [place] and thinks they can stay there maybe a week, but wants to know if we can give her gas money to get home. Said spouse might have gas money to get her but money tight. Told her we don't have gas vouchers but the [employer] in [facility] may be able to help them with that, gave her [facility] phone number and address in [place] to give to spouse when he comes to [facility] to get her.
--- NOTE | 2016-08-19 17:09 | NUR ---
Significant Event: A/OX3, VSS NO ROOM AIR. PT. GETS UP SELF IN ROOM, SHOWERED TODAY. SLIV'S TO R)ARM. BLOOD SUGARS HAVE BEEN 123, 103, 94 & 150 TODAY, Q4HR ACCUCHECKS DUE @ ASSESSMENT TIMES. IMITREX GIVEN @ 1130, IV ZOFRAN GIVEN @ 0814, IM PHENEGRAN GIVEN @ 1237, FIORICET GIVEN @ 0814, ROBAXIN GIVEN @ 1041 & 1 TAB OF NORCO GIVEN X2 LAST @ 1317 FOR COMPLAITS OF PAIN, NAUSEA WITH DRY HEAVES & HEADACHE. DR. VORA SAW PT. TODAY, DID MED CHANGES ONLY. PT. WILL LEAVE AMA ONCE GETS HERE, REFUSES TO SIGN PAPERS UNTIL THEN, PAPERS ON CHART, DR. HARRELL AWARE. PT. CAN GET ANOTHER DOSE OF IMITREX AFTER 2100, HAS HAD HERE 2 DOSES TODAY. Follow up: SIGN AMA PAPERS.
[2016-08-19] MEDS ORDERED: WELLBUTRIN SR150 MG PO (18:59)
[2016-08-19] MEDS ORDERED: ACCU-CHEK1 EAC1 (19:35)
--- NOTE | 2016-08-19 21:11 | NUR ---
Discharge note: Pt aware of discharge. Pt's needs met prior to discharge. Pt escorted by TA and to home. All meds were reviewed with pt and no new meds were prescribed.
== END 2016-08-19 21:02 | disposition disaster alternative care site (69) ==
LOC: EDSTATUS 12:00 → GPCU 14:35
PROVIDERS: ADMIT Internal Medicine
DX: E16.2 Hypoglycemia, unspecified (principal); J45.40 Moderate persistent asthma, uncomplicated; E66.01 Morbid (severe) obesity due to excess calories; Z72.0 Tobacco use; G43.909 Migraine, unspecified, not intractable, without status migrainosus; G89.29 Other chronic pain; M54.9 Dorsalgia, unspecified; M19.90 Unspecified osteoarthritis, unspecified site; M47.818 Spondylosis without myelopathy or radiculopathy, sacral and sacrococcygeal region; F32.9 Major depressive disorder, single episode, unspecified; F60.3 Borderline personality disorder; F41.1 Generalized anxiety disorder; F43.10 Post-traumatic stress disorder, unspecified; F17.210 Nicotine dependence, cigarettes, uncomplicated; Z91.040 Latex allergy status; Z88.8 Allergy status to other drugs, medicaments and biological substances; Z91.010 Allergy to peanuts; Z79.899 Other long term (current) drug therapy
CPT/HCPCS: G0378; J1650; J2405; J2550; J3030; Q0162